=== PATIENT | female | born 1955 | race Caucasian/White ===

== ENCOUNTER → 2018-05-03 | Outpatient (CLI) | payer OTHER ==
--- NOTE | 2018-05-03 14:14 | Diagnostic Imaging Report ---
INDICATION: Goiter. TECHNIQUE: Grayscale sonographic images of the thyroid gland. CORRELATION STUDY: None. FINDINGS: RIGHT LOBE: Enlarged at 7.1 x 3.3 x 3.0 cm. LEFT LOBE: Enlarged at 7.4 x 4.4 x 4.1 cm. There is rather diffuse heterogeneous echotexture throughout both lobes of thyroid gland demonstrating multiple nodules and masses. Definitive quantification of large number of the nodules/masses is difficult. Largest however appears to be predominantly cystic with multiple septations within the mid aspect of the left lobe. This measures up to 3 cm in size. Isthmus also enlarged, lobulated and heterogeneous and nodular. IMPRESSION: Rather markedly abnormal appearance about the thyroid gland which is diffusely enlarged, heterogeneous and nodular. Definitive dominant solid mass does not appear to be suggested but could easily go undetected owing to rather pronounced chronic changes. Consideration might be given to nuclear medicine thyroid scan for assessment of potential cold nodules. (Normal gland size: 4-5 x 2 x 2 cm) Dictated by: Dictated on workstation # [id number]
== END ==
LOC: RAD 11:02
PROVIDERS: ATTEND Nurse Practitioner Community Health
DX: E04.2 Nontoxic multinodular goiter (principal); R68.2 Dry mouth, unspecified; K59.01 Slow transit constipation; Z80.8 Family history of malignant neoplasm of other organs or systems
CPT/HCPCS: 76536

== ENCOUNTER → 2021-07-23 | Outpatient (CLI) | payer OTHER ==
[~2021-07-23] MED LIST: LIDOCAINE 1% INJ 20 ML 20 ML VIAL INJ ONE; LIDOCAINE 1% INJ 20 ML 20 ML VIAL ONE
--- NOTE | 2021-07-23 16:04 | Diagnostic Imaging Report ---
INDICATION: Left thyroid mass. EXAMINATION: Patient presents for ultrasound-guided fine-needle aspiration. PROCEDURE: Patient was brought to the procedure room and placed on table in the supine position. Ultrasound imaging of the left neck was performed to evaluate appropriate entry site. Left neck was then prepped and draped in the usual sterile fashion. A small amount of 1%lidocaine was utilized for local anesthesia. Procedure was performed with the aid of a financial institution branch manager. A total of four passes were made into the primarily cystic, septated mass in the left lobe of the thyroid utilizing 25-gauge needle and fine needle aspiration technique. Attempts were made to perform FNA of the areas of thickened septation and nodularity. A final pass was made with an 18-gauge needle and approximately 3 mL of dark fluid was aspirated. Needle was removed and hemostasis was obtained. Patient tolerated the procedure well and left the department in stable condition. IMPRESSION: Successful ultrasound-guided fine needle aspiration of the septated cystic mass in left lobe of thyroid. Pathology results are currently pending. Dictated by: Dictated on workstation # [id number]
== END ==
LOC: RAD 14:30
PROVIDERS: ATTEND Nurse Practitioner Family
DX: E04.1 Nontoxic single thyroid nodule (principal)